=== PATIENT | female | born 1985 | race Caucasian/White ===

== ENCOUNTER 2020-12-16 18:08 | Emergency (ER) | payer SELFPAY ==
--- NOTE | 2020-12-16 18:14 | ED.GENADUL_ITS ---
Discharge Plan Disposition Patient Disposition: AGAINST MEDICAL ADVICE Condition: Stable Discharge Details Clinical Impression: Opiate overdose Primary Care Provider: Lai Silva ED Provider: Keya Gilbert Home Meds and New Rx's Prescriptions: Continued acetaminophen [Tylenol Extra Strength] 500 MG tablet 1,000 mg PO DAILY PRNRF: 0 xdscrllm-ltxf-kkr-folic acid [One Daily For Women] 1 EACH tablet 1 tab PO DAILY RF: 0 olanzapine [Zyprexa] 5 MG tablet 10 mg PO DAILY RF: 0 Discharge Instructions Instructions: Opioid Safety (ED) Additional Instructions: You are leaving the hospital AGAINST MEDICAL ADVICE. The Narcan you were given can wear off and you can stop breathing again. This can lead to increased risk of or disability. Use Narcan as directed if you have an opiate overdose. Follow-up with your primary care doctor in 1 week. Return to the emergency department with any worsening or new concerning symptoms. Discharge Data Discharge Date/Time-TO BE ENTERED AT DEPARTURE: 12/16/20 18:20 Discharge Physician: Keya Gilbert Medical Decision Making 35-year-old female with a history of opiate abuse and asthma presents after opiate overdose with Narcan administration. EMS call was for overdose with CPR in progress. Upon EMS arrival, patient had already been given Narcan intranasally by bystanders and CPR in progress by bystanders. Shortly after EMS arrival on scene, patient was noted to be breathing, awake and alert and moving all extremities and CPR stopped. Vitals within normal limits per EMS. Upon arrival to ED, patient awake, alert, oriented x 3 and ambulatory. She is stating she does not have insurance and is refusing to stay. She denies any acute complaints. She was informed that Narcan's effects can be short acting and risk of respiratory depression may return. The risks of and disability due to missed diagnoses or worsening condition explained and patient understands. She demonstrates capacity to make decisions. AMA form signed. Advised to return immediately with any concerns. Medical Records Medical records reviewed: Yes I reviewed the patient's medical records. HPI General Mode of arrival: EMS . Date/Time Provider Initiated Documentation: 12/16/20 18:14 . Limitations to Documentation: no limitations . Information obtained by: patient and EMS . HPI Narrative: Patient is a 35-year-old female with a history of opiate dependence presents per EMS for opiate overdose. Call per EMS was for overdose with CPR in progress. Upon EMS arrival, patient had already been given intranasal Narcan per a bystander and a bystander was doing chest compressions. Shortly after EMS arrival, patient was alert, breathing and moving all of her extremities. Upon arrival to the ED, patient is awake and alert and demanding to leave. She states she does not have any insurance and does not want anything done and wants to leave. Related Data Home Medications Medication Instructions Recorded Confirmed acetaminophen [Tylenol Extra 1,000 mg PO DAILY PRN 11/29/13 12/01/13 Strength] qonculac-ngus-yeu-folic acid [One 1 tab PO DAILY 11/29/13 12/01/13 Daily For Women] olanzapine [Zyprexa] 10 mg PO DAILY tab 08/22/16 Previous Rx's Medication Instructions Recorded olanzapine [Zyprexa] 10 mg PO DAILY tab 08/22/16 Allergies Allergy/AdvReac Type Severity Reaction Status Date / Time adhesive Allergy blistering Unverified 08/09/16 21:04 codeine AdvReac nausea/vomi Unverified 08/09/16 21:04 ting morphine AdvReac nausea/vomi Unverified 08/09/16 21:04 ting orange juice AdvReac Unverified 08/10/16 15:10 Pet Dander Allergy Intermediate Sneezing, Uncoded 08/09/16 21:04 scratchy throat, watery eyes Review of Systems All systems reviewed & are unremarkable except as noted in HPI and below Constitutional Constitutional: Reports as per HPI, Denies chills and Denies fever(s) Eyes Eyes: Denies blurry vision ENT Ears, Nose, Mouth, and Throat: Denies dizziness, Denies sore throat and Denies throat swelling Cardiovascular Cardiovascular: Denies chest pain and Denies dyspnea Respiratory Respiratory: Denies cough and Denies dyspnea Gastrointestinal Gastrointestinal: Denies abdominal pain, Denies diarrhea and Denies vomiting Genitourinary Genitourinary: Denies hematuria and Denies dysuria Musculoskeletal Musculoskeletal: Denies back pain and Denies numbness Integumentary/Breasts Skin/Breast: Denies lesions and Denies rash Neurologic Neurologic: Denies dizziness, Denies localized weakness and Denies numbness Allergic/Immunologic Allergic/Immunologic: Denies throat swelling [facility] Social History Smoking/Tobacco Use Status: Current every day Smoking risk assessment performed?: Yes Drug use: Never Do you feel safe in your relationship?: Yes Exam Const General: cooperative, no acute distress and ill appearing chronically Orientation: alert, awake and oriented x3 HENMT Head: normal to inspection Mouth: oral mucosae normal Eyes General: appearance normal, both eyes and all related structures Neck Neck: normal visual inspection Resp Effort & Inspection: normal respiratory effort and able to speak in complete sentences Cardio Rate: regular rate Skin General skin exam: excoriation (Diffuse, no cellulitis or abscess) Neuro General: patient alert, patient awake and patient oriented x3 Motor: muscle tone normal throughout Extrem General: normal to inspection and full ROM Psych Appearance: grossly normal Affect: normal affect
== END 2020-12-16 18:20 | disposition left against medical advice (07) ==
LOC: ER 20:52
PROVIDERS: Emergency Provider Physician Assistant; PCP Family Medicine
DX: T40.601A Poisoning by unspecified narcotics, accidental (unintentional), initial encounter (principal); F11.20 Opioid dependence, uncomplicated; Z53.29 Procedure and treatment not carried out because of patient's decision for other reasons
CPT/HCPCS: 99283